=== PATIENT | male | born 1970 | race Two or more races ===

== ENCOUNTER 2017-02-25 16:03 | Emergency (ER) | payer BC ==
--- NOTE | ~2017-02-25 | ER ---
PATIENT'S NAME: CLAUDIA PITTMAN [facility] AGE: 46 Y [address] ROOM: [place] [id number] LOCATION: [facility] ADMIT DATE: 02/25/2017 ER/Outpatient Report DISCHARGE DATE: 02/25/2017 FAMILY PHYSICIAN: PHYSICIAN, NO ATTENDING PHYSICIAN: Dean Garcia Time of Arrival: 1605 hours. Time of Evaluation: 1605 hours. CHIEF COMPLAINT: Right back pain, abdominal bump. HISTORY OF PRESENT ILLNESS: The patient does not speak Japanese. Vyopta was used for the initial interviewing of the patient. The patient states he is having right flank pain that goes down into the buttocks, down into his legs, and circles around to the front, and makes him nauseated, but he has not vomited. His feels he has been warm to touch. Pain kind of started on Saturday. He did not wake up with the pain, but as the day progressed, the pain has continued. He does have chronic kidney disease and is on dialysis Saturday, Saturday, and Saturday. Did do dialysis today, that did not make the back pain any better. He says that he is normally treated in [place], but they are not happy with the care that they are receiving in [place]. So, they came here for a second opinion. He states that he has had a lump in the right lower abdominal area for the past 7 or 8 months and the dialysis is aware of that, but they do not seem concerned that, that is something that needs to be treated. ALLERGIES: HE HAS NO KNOWN ALLERGIES. CURRENT MEDICATIONS: He is supposed to be on medications for his blood pressure, but he refuses to take them. The only medication that he is taken is a stool softener to help with his digestion. PAST MEDICAL HISTORY: Chronic kidney disease, hypertension, dialysis for the past 4 years. PAST SURGERIES: Fistula of the right upper arm. SOCIAL HISTORY: He lives with his in [place]. Denies use of tobacco, drugs, or alcohol. PATIENT'S NAME: CLAUDIA PITTMAN [facility] AGE: 46 Y [address] ROOM: [place] [id number] LOCATION: [facility] ADMIT DATE: 02/25/2017 ER/Outpatient Report DISCHARGE DATE: 02/25/2017 FAMILY PHYSICIAN: PHYSICIAN, NO ATTENDING PHYSICIAN: Dean Garcia ROS: All negative other than those mentioned in the HPI. PHYSICAL EXAMINATION: VITAL SIGNS: He weighed 67.8 kg, blood pressure was 107/70, pulse of 100, respirations 16, temperature of 98.2, O2 saturation was 97% on room air. GENERAL: He is awake, alert, and oriented x4, answers questions appropriately per die tripper. SKIN: [place], warm, and dry. RESPIRATIONS: Even and nonlabored. LUNGS: Lung sounds are clear throughout. HEART: Regular rate and rhythm. ABDOMEN: Round, soft, and nondistended. Bowel sounds are present. He is tender in the right flank area. EMERGENCY DEPARTMENT COURSE: Saline lock was initiated. He was given Zofran 4 mg IV. Lab work was drawn. CBC is within normal limits. Chem panel is as expected with his chronic kidney disease. BUN is 27, creatinine is 9.8. His GFR is 6. I did do CT of the thoracic, lumbar, and abdomen without contrast. Radiologist reports that the patient has polycystic kidney and polycystic liver disease. He has innumerable simple and complex hemorrhagic kidney cyst. No hydronephrosis. T- spine and L-spine just show some mild degenerative changes. IMPRESSION: Right flank pain due to polycystic kidney disease. PLAN: With the use of the MARTTI, the patient and his were informed of the polycystic kidneys and how they were causing the pain. I did give them the names of different providers here in [facility] including Dr. Linares for Internal Medicine if they want to consider being seen here in [facility]. I did write a prescription for Solomon for pain and encouraged them to follow up with the primary provider within the next 2-3 days. Through the MARTTI, they verbalized understanding. YAMILET REYNOLDS APRN FOR MD VLADISLAV ALMANZAR/jorge /[id number] d: 02/26/17 0147 t: 03/04/17 0647, OUTPATIENT REPORT
[2017-02-25 16:51] LABS: BASOPHIL # 0.1 K/uL (0.0-0.2); BASOPHIL % 0.8 %; EOSINOPHIL # 0.2 K/uL (0.0-0.5); EOSINOPHIL % 3.8 %; HEMATOCRIT 54.7 % (37.0-53.0); HEMOGLOBIN 17.7 g/dL (12.0-17.0); IMMATURE GRANULOCYTE % 0.3 %; LYMPHOCYTE # 1.2 K/uL (0.8-4.0); LYMPHOCYTE % 19.2 %; MCH 31.5 pg (27.0-34.0); MCHC 32.4 gm/dL (32.0-36.5); MCV 97.3 fl (83.0-98.0); MONOCYTE # 0.3 K/uL (0.0-1.0); MONOCYTE % 4.7 %; MPV 9.2 fl (9.4-12.4); NEUTROPHIL # (ANC) 4.6 K/uL (1.4-9.0); NEUTROPHIL % 71.2 %; NRBC % 0 /100WBC (0-0.00); PLATELET COUNT 239 K/uL (150-450); RBC 5.62 M/uL (4.00-6.00); WBC 6.4 K/uL (4.0-11.0)
[2017-02-25 17:15] LABS: ALBUMIN 3.8 gm/dL (3.5-5.0); CALCIUM 9.2 mg/dL (8.5-10.5); TOTAL BILIRUBIN 0.6 mg/dL (0.0-1.5); TOTAL PROTEIN 8.8 g/dL (6.0-8.4)
[2017-02-25 17:16] LABS: CREATININE 9.8 mg/dL (0.6-1.3)
== END 2017-02-25 18:16 | disposition disaster alternative care site (69) ==
LOC: GMED 16:03
PROVIDERS: Nurse Practitioner Family
DX: N28.1 Cyst of kidney, acquired (principal); I12.9 Hypertensive chronic kidney disease with stage 1 through stage 4 chronic kidney disease, or unspecified chronic kidney disease; N18.9 Chronic kidney disease, unspecified
CPT/HCPCS: J2405